=== PATIENT | female | born 1940 | race African-American/Black ===

== ENCOUNTER 2017-11-18 04:04 | Emergency (ER) | payer MEDICARE, BC ==
[~2017-11-18] VITALS: Ht 157.5 cm; Wt 63.5 kg
[2017-11-18 04:21] VITALS: BP 181/81
[2017-11-18] MEDS ORDERED: Bacitracin Oint UD TOPIC ONE ×2 (04:41→04:45)
[2017-11-18] MEDS ORDERED: MUPIROCIN22 GM TOPIC (04:44)
--- NOTE | 2017-11-18 04:45 | Emergency Room Report ---
History of Present Illness General Chief Complaint: General Complaint Source: Patient Present Illness HPI Is a 77-year-old female with no past medical history. She presents with chief complaint of a rash to her left side. She woke up with a burning sensation and touch it and there was some clear discharge. No fever or chills. No bite that she noticed. No other complaint. Allergies: Coded Allergies: No Known Allergies (Unverified , 11/18/17) Patient History Past Medical History: none, see triage record, old chart reviewed Past Surgical History: none Pertinent Family History: none Social History: Denies: smoking Last Menstrual Period: NA Now: No Immunizations: other Reviewed Nursing Documentation: PMH: Agreed, PSxH: Agreed Nursing Documentation-PMH Past Medical History: No Stated History Review of Systems Eye: Denies: eye pain, blurred vision ENT: Denies: ear pain, nose congestion, throat swelling Respiratory: Denies: cough, shortness of breath Cardiovascular: Denies: chest pain, palpitations Gastrointestinal: Denies: abdominal pain, diarrhea, nausea, vomiting Musculoskeletal: Denies: back pain, joint pain Skin: Denies: rash Neurological: Denies: headache, numbness Endocrine: Denies: increased thirst, increased urine Hematologic/Lymphatic: Denies: easy bruising All Other Systems: negative except mentioned in HPI Physical Exam Vital Signs Date Time Temp Pulse Resp B/P (MAP) Pulse Ox O2 Delivery O2 Flow Rate FiO2 11/18/17 04:17 98.2 74 18 181/81 99 Room Air vitals with high blood pressure Sp02 EP Interpretation: reviewed, normal General Appearance: well appearing, no apparent distress, alert Head: normocephalic, atraumatic Eyes: bilateral eye PERRL, bilateral eye EOMI ENT: hearing grossly normal, normal pharynx Neck: full range of motion, supple, no meningismus Respiratory: chest non-tender, lungs clear, normal breath sounds Cardiovascular #1: regular rate, rhythm, no murmur Gastrointestinal: normal bowel sounds, non tender, no mass, no organomegaly, no bruit, non-distended Musculoskeletal: back normal, gait/station normal, normal range of motion, other - Left torso: There is skin breakage along the mid axillary line around the T8 distribution on the left. There is small blisters and some vesicles. Neurologic: alert, oriented x3 Psychiatric: mood/affect normal Skin: warm/dry Medical Decision Making Diagnostic Impression: Primary Impression: Acute blistering eruption of skin ER Course Patient presents with some blistering of her skin. Not much pain. I see no evidence of crepitus. No evidence of necrotizing fasciitis. This may be atypical presentation of herpes zoster. Patient reassured. We'll discharge home with antibiotic ointment. Last Vital Signs Date Time Temp Pulse Resp B/P (MAP) Pulse Ox O2 Delivery O2 Flow Rate FiO2 11/18/17 04:21 98.2 77 18 181/81 99 Room Air Status: unchanged Disposition: HOME, SELF-CARE Condition: Stable Scripts Mupirocin* (MUPIROCIN*) 22 Gm Oint...g. 1 APPLIC TOPIC THREE TIMES A DAY, #22 GM Prov: KENN WHITNEY M.D. 11/18/17 Referrals: NOT CHOSEN IPA/,REFERRING (PCP) Additional Instructions: Keep wound clean. Followup your doctors in 7 days. Return if worse. Have your recheck on your blood pressure. KENN WHITNEY M.D. Nov 18, 2017 04:45
[2017-11-18 05:02] VITALS: BP 159/78
== END 2017-11-18 05:02 | disposition home or self-care (01) ==
LOC: EMR 04:37
DX: S40.822A Blister (nonthermal) of left upper arm, initial encounter (principal); X58.XXXA Exposure to other specified factors, initial encounter; Y92.9 Unspecified place or not applicable
CPT/HCPCS: 99283

== ENCOUNTER 2020-06-28 17:51 | Emergency (ER) | payer MEDICARE, BC ==
[~2020-06-28] VITALS: Ht 160 cm; Wt 55.8 kg
[~2020-06-28 17:51] MED LIST: MUPIROCIN22 GM TOPIC
[2020-06-28 18:05] VITALS: BP 160/70
--- NOTE | 2020-06-28 18:51 | Diagnostic Imaging Report ---
EXAM: XR Left Elbow Complete, 3 or More Views CLINICAL HISTORY: FALL TECHNIQUE: Frontal, lateral and oblique views of the left elbow. COMPARISON: No previous study. FINDINGS: Bones/joints: Acute nondisplaced fracture of the radial head is noted. Moderate to large joint effusion. Anatomic alignment is unremarkable. Soft tissues: Soft tissues are within normal limits. IMPRESSION: Acute nondisplaced fracture of the left radial head. <MYCVCSECTION> Communications: 06/28/20 18:54 Call Doctor Regarding Trauma, called Raman YEE on 06/28 18: 54 (-07:00)
[2020-06-28] MEDS ORDERED: IBUPROFEN600 M1 ORAL (18:52)
[2020-06-28] MEDS ORDERED: NORCO 5-325 TA1 EAC1 ORAL (18:52)
--- NOTE | 2020-06-28 18:52 | Diagnostic Imaging Report ---
EXAM: XR Right Knee, 3 Views CLINICAL HISTORY: FALL TECHNIQUE: Three views of the right knee. COMPARISON: No previous studies. FINDINGS: Bones/joints: Acute predominantly transverse fracture of the patella. Large right knee joint effusion Moderate osteoarthritic changes. Chondrocalcinosis. Osteopenia. No dislocation. Soft tissues: Extensive soft tissue swelling anteriorly. Vasculature: Atherosclerotic disease. IMPRESSION: 1. Acute patellar fracture. 2. Joint effusion. 3. Anterior soft tissue swelling. <MYCVCSECTION> Communications: 06/28/20 18:54 Call Doctor Regarding Trauma, called Raman YEE on 06/28 18:54 (-07:00)
[2020-06-28 19:05] VITALS: BP 149/73
[2020-06-28 19:35] VITALS: BP 145/72
--- NOTE | 2020-06-28 21:41 | Emergency Room Report ---
History of Present Illness General Chief Complaint: Multiple Trauma/Fall Source: Patient Present Illness HPI 80-year-old female here after mechanical fall. The patient says that earlier today she tripped on the sidewalk and landed on her left elbow and right knee. She has been ambulating but with pain. Has been using the left upper extremity but with pain. Did not take any medications prior to arrival. She is adamant that this was a mechanical fall and she never had a syncopal episode. Did not hit her head or have loss of consciousness or neck pain. Does not take any medications at all. 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 Patient History Last Menstrual Period: na Now: No Nursing Documentation-[facility] Past Medical History: No Stated History Hx Cardiac Problems: No Hx Hypertension: No Hx Pacemaker: No Hx Asthma: No Hx COPD: No Hx Diabetes: No Hx Cancer: No Hx Gastrointestinal Problems: No Hx Dialysis: No History Of Psychiatric Problem: No Hx Neurological Problems: No Hx Cerebrovascular Accident: No Hx Seizures: No Review of Systems All Other Systems: negative except mentioned in HPI Physical Exam Vital Signs Date Time Temp Pulse Resp B/P (MAP) Pulse Ox O2 Delivery O2 Flow Rate FiO2 06/28/20 18:00 97.9 70 14 160/70 (100) 98 Room Air Sp02 EP Interpretation: reviewed, normal General Appearance: no apparent distress, alert, non-toxic Head: normocephalic, atraumatic Eyes: bilateral eye normal inspection, bilateral eye PERRL ENT: hearing grossly normal, normal pharynx, no angioedema, normal voice Neck: full range of motion, supple/symm/no masses Respiratory: chest non-tender, lungs clear, normal breath sounds, speaking full sentences Cardiovascular #1: regular rate, rhythm, no edema Cardiovascular #2: 2+ carotid (R), 2+ carotid (L), 2+ radial (R), 2+ radial (L), 2+ dorsalis pedis (R), 2+ dorsalis pedis (L) Gastrointestinal: normal bowel sounds, non tender, soft, non-distended, no guarding, no rebound Rectal: deferred Genitourinary: normal inspection, no CVA tenderness Musculoskeletal: back normal, calf tenderness, gait/station normal, other - Very large joint effusion of the entirety of the right knee worst anteriorly. No break in the skin. Ranging left elbow but pain on palpation at the radial head Neurologic: alert, motor strength/tone normal, oriented x3, sensory intact, responsive, speech normal Psychiatric: judgement/insight normal, memory normal, mood/affect normal, no suicidal/homicidal ideation Reflexes: 3+ bicep (R), 3+ bicep (L), 3+ tricep (R), 3+ tricep (L), 3+ knee (R), 3+ knee (L) Lymphatic: no adenopathy Medical Decision Making Diagnostic Impression: Primary Impression: Patella fracture Additional Impression: Radial head fracture ER Course X-ray left elbow: Small nondisplaced left radial head fracture X-ray right knee: Patellar fracture without any large displacement. No other joint or bony abnormalities Splint: Knee immobilizer placed in the right lower extremity. Patient was neurovascular intact before and after the knee immobilizer was placed. Splint: Left upper extremity posterior mold splint placed with patient's elbow in 90 degrees flexion, then placed into a arm sling. Patient was neurovascular intact before and after the splint was placed 80-year-old female here after mechanical fall. Patient had evidence of left upper extremity radial head fracture as well as a right patellar fracture. Patient was placed in a left upper extremity splint and knee immobilizer as explained above. Patient was given information to follow-up with orthopedic surgery. She was given crutches and was able to get around the emergency department in the crutches without much difficulty. Discharged in stable condition. Last Vital Signs Date Time Temp Pulse Resp B/P (MAP) Pulse Ox O2 Delivery O2 Flow Rate FiO2 06/28/20 19:35 97.9 75 14 145/72 98 Room Air Disposition: HOME, SELF-CARE Condition: Stable Scripts Ibuprofen* (MOTRIN*) 600 Mg Tablet 600 MG ORAL Q6H PRN for FOR PAIN, #20 TAB 0 Refills Prov: Mark Camargo M.D. 06/28/20 Hydrocodone Bit/Acetaminophen 5-325* (NORCO 5-325 TABLET*) 1 Each Tablet 1 TAB ORAL Q4H PRN for For Pain, #10 TAB Prov: Mark Camargo M.D. 06/28/20 Referrals: Hung Fairchild MD [facility]: 7am -10pm Wednesday - Wednesday 9am - 8pm Weekends and Holidays NO APPOINTMENT NEEDED [facility]: Wednesday - Wednesday APPOINTMENT NEEDED [facility] 24 hour /7 days a week by Appointment Only [address] [address] Patient Instructions: Radial Head Fracture, Patellar Fracture, Adult Mark Camargo M.D. Jun 28, 2020 21:41
== END 2020-06-28 19:35 | disposition home or self-care (01) ==
LOC: EMR 18:15
DX: S52.125A Nondisplaced fracture of head of left radius, initial encounter for closed fracture (principal); S82.031A Displaced transverse fracture of right patella, initial encounter for closed fracture; W01.198A Fall on same level from slipping, tripping and stumbling with subsequent striking against other object, initial encounter; Y93.01 Activity, walking, marching and hiking; Y92.480 Sidewalk as the place of occurrence of the external cause
CPT/HCPCS: 29105; 29505; 99284

== ENCOUNTER 2020-07-04 12:55 | Emergency (ER) | payer MEDICARE, BC ==
[~2020-07-04] VITALS: Ht 157.5 cm; Wt 58.1 kg
[~2020-07-04 12:55] MED LIST changes: +IBUPROFEN600 M1 ORAL; +NORCO 5-325 TA1 EAC1 ORAL
[2020-07-04 13:07] VITALS: BP 150/80
--- NOTE | 2020-07-04 13:21 | Emergency Room Report ---
History of Present Illness General Chief Complaint: Upper Extremity Injury Source: Patient Present Illness HPI Patient had a mechanical fall on the of this month. Patient was diagnosed with a patella fracture and left elbow radial head fracture. Patient had a splint applied to her left elbow. Patient states that she got her splint wet and she took it off. She returns here for splint application. Patient states that she is followed up with orthopedics and told that she probably needs surgery on her right patella. Denies any other injuries. No other complaints are noted. No other modifying factors. No other associated signs and symptoms. No other complaints were noted. 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 Patient History Past Medical History: none Past Surgical History: none Pertinent Family History: none Reviewed Nursing Documentation: PMH: Agreed; PSxH: Agreed Nursing Documentation-PMH Past Medical History: No History, Except For Hx Cardiac Problems: No Hx Hypertension: No Hx Pacemaker: No Hx Asthma: No Hx COPD: No Hx Diabetes: No Hx Cancer: No Hx Gastrointestinal Problems: No Hx Dialysis: No Hx Neurological Problems: No Hx Cerebrovascular Accident: No Hx Seizures: No Review of Systems All Other Systems: negative except mentioned in HPI Physical Exam Vital Signs Date Time Temp Pulse Resp B/P (MAP) Pulse Ox O2 Delivery O2 Flow Rate FiO2 07/04/20 12:58 98.1 77 17 146/77 (100) 98 Room Air Sp02 EP Interpretation: reviewed, normal General Appearance: normal inspection, well appearing, no apparent distress, alert Head: atraumatic Eyes: bilateral eye normal inspection ENT: normal ENT inspection, hearing grossly normal, normal voice Neck: normal inspection, full range of motion, supple, no bony tend Respiratory: normal inspection, lungs clear, normal breath sounds, no respiratory distress, no retraction, no wheezing Cardiovascular #1: regular rate, rhythm, no edema Gastrointestinal: normal inspection, normal bowel sounds, non tender, soft, no guarding, no hernia Genitourinary: no CVA tenderness Musculoskeletal: normal inspection, back normal, normal range of motion, tender - Left elbow Neurologic: alert, responsive, speech normal, normal inspection Psychiatric: normal inspection, judgement/insight normal, mood/affect normal Skin: no rash Procedures Splinting Splinting : Consent: Verbal Location: Left elbow Hand-Made Type: plaster Splint: posterior long Pre-Proc Neuro Vasc Exam: normal Post-Proc Neuro Vasc Exam: normal Patient Tolerated: Well Complications: None Medical Decision Making Diagnostic Impression: Primary Impression: Patella fracture Additional Impression: Radial head fracture ER Course Patient presents emergency department today complaining of left elbow pain. Patient requires a splint. Given that there is no recent injury since the last time I do not feel any x-rays are indicated. Splint was reapplied to patient's left elbow. Recommend outpatient follow-up with orthopedics. Patient is advised to follow up with primary doctor in 2-3 days and return the emergency room for any worsening symptoms and as needed. Last Vital Signs Date Time Temp Pulse Resp B/P (MAP) Pulse Ox O2 Delivery O2 Flow Rate FiO2 07/04/20 13:07 98.0 83 18 150/80 98 Room Air Status: improved Disposition: HOME, SELF-CARE Condition: Stable Noah Mcginnis MD Jul 04, 2020 13:20
[2020-07-04 13:44] VITALS: BP 143/86
== END 2020-07-04 13:44 | disposition home or self-care (01) ==
LOC: EMR 13:15
DX: S52.122A Displaced fracture of head of left radius, initial encounter for closed fracture (principal); S82.099A Other fracture of unspecified patella, initial encounter for closed fracture; X58.XXXA Exposure to other specified factors, initial encounter; Y92.9 Unspecified place or not applicable
CPT/HCPCS: 29105; 99283